=== PATIENT | female | born 1975 | race Asian ===

== ENCOUNTER 2022-08-05 18:30 | Outpatient (CLI) | payer BC, SELFPAY ==
[2022-08-05 15:21] LABS: Cholesterol* 199 mg/dL (90-199)
[2022-08-05 15:22] LABS: Glucose* 90 mg/dL (60-115); HDL Cholesterol* 46 mg/dL (>=50); LDL Cholesterol Calculated 130 mg/dL (<100); Triglycerides* 117 mg/dL (40-149)
[2022-08-05 17:21] LABS: Hepatitis B Surface Antibody* Indeterminant (Negative)
[2022-08-06 17:23] LABS: Hepatitis B Core Antibodies Negative (Negative)
[2022-08-07 09:07] LABS: Hepa B Virus Surf Ag Conf Non Confirmed (Non Confirmed)
== END 2022-08-05 18:31 | disposition home or self-care (01) ==
PROVIDERS: PCP Emergency Medicine; Visit Provider Emergency Medicine
DX: Z01.419 Encounter for gynecological examination (general) (routine) without abnormal findings (principal); Z13.6 Encounter for screening for cardiovascular disorders; Z13.1 Encounter for screening for diabetes mellitus; Z11.59 Encounter for screening for other viral diseases
CPT/HCPCS: 80061; 82947; 86704; 86706; 87341

== ENCOUNTER 2023-09-29 08:47 | Outpatient (CLI) | payer BC, SELFPAY | END 2023-09-29 08:48 | disposition home or self-care (01) | PROVIDERS: PCP Emergency Medicine; Visit Provider Emergency Medicine | DX: R11.0 Nausea (principal); Z13.220 Encounter for screening for lipoid disorders; Z01.84 Encounter for antibody response examination | CPT/HCPCS: 80048; 80061; 80076; 86140; 86706; 87086 ==

== ENCOUNTER 2023-11-10 15:30 | Outpatient (RCR) | payer BC, SELFPAY ==
--- NOTE | 2023-10-26 09:23 | PT.OPE ---
PT [facility] PT [facility] Eval Start: 10/24/23 15:22 Freq: Status: Active Protocol: Document 10/26/23 09:17 CJT (Rec: 10/26/23 09:23 CJT [id number]) E-signed By Cale Hewitt PT Physical Therapy Outpatient Evaluation Insurance Information Recert Due Date 01/23/24 Insurance Name [employer] Medical Diagnosis M25.512 - L shoulder pain Treating Diagnosis M25.512 - L shoulder pain Referring Irais Corral MD Subjective Subjective Pt presents with complaints of L shoulder pain ongoing for about 4 months. Pt points to just lateral of L acromion process as the source of her pain. Lifting the arm makes her pain worse. Shoulder ROM seems to be limited, Cannot elevate to her normal height and the shoulder feels stiff when reaching behind her back, both overhand and underhand. 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 Preferred Name Zara Cruz) Precautions Therapy Limitations/Systems Review Not Limited Objective Other/Pertinent Objective Cervical ROM Extension - 55 Flexion - 55 R/L Side Bend - 30/30 * stiffness to the R R/L Rotation - 75/75 R Shoulder ROM Flexion/Abduction/IR/ER - 180/ 180/T10/90 L Shoulder ROM Flexion/Abduction/IR/ER - 73/ 90/PSIS/50 R Shoulder Strength Flexion - 5/5 MMT Abduction - 5/5 MMT IR (neutral) - 5/5 MMT IR (90) - 5/5 MMT ER (neutral) - 5/5 MMT ER (90) - 5/5 MMT Empty Can - 5/5 MMT L Shoulder Strength Flexion - 5/5 MMT Abduction - 5/5 MMT IR (neutral) - 4/5 MMT ER (neutral) - 4/5 MMT Empty Can - 5/5 MMT Palpation: pt reports minimal tenderness with palpation around L shoulder thsi date Posture: fair, some slight forward rounding of B shoulders Spurling's Compression: negative [place]'s: negative Crossover: pain noted in L shoulder AC Compression: negative Zeng-Amrik: pt notes pain with sustained pressure in testing position Anette: negative Speeds: negative Assessment Assessment/Impression Zara is a very pleasant 48 year old female who presents to our clinic for evaluation and treatment of L shoulder pain. Pt demonstrates very clear signs of adhesive capsulitis with ROM in all planes of GHJ limited this date. Her strength is nearly full and she has very little pain with strength testing. Evaluating for signs of impingement was challenging due to pts lack of L shoulder ROM, however I do not suspect RTC involvement as being the primary cause of her issue as her strength was nearly full. She did demonstrate some weakness around the L shoulder but this may have been due to lack of understanding directions from myself or her chief recordist. Pt may benefit from referral to orthopedics with potential cortisone injection to L shoulder. I did explain to Zara that this pathology often takes a long time to fully heal and she should perform the stretches that I gave her 3 times daily to help reduce capsular tightness. The nature of the pts condition was explained and all questions were answered to the pts satisfaction. Skilled PT services are medically necessary to address deficits and return patient to highest level of function. Recommend physical therapy sessions 1/ week for 6-8 weeks. Pt agrees with this plan. Printout of HEP was given for I completion and pt gives verbal understanding of each exercise . Primary Functional Limitations Lifting, reaching Plan of Care Rehabilitation Potential Good Physical Therapy Goals STG - To be completed in 2-3 weeks: 1. Pt will demonstrate improved shoulder flexion and abduction by 10+ degrees so that they may reach for cans of soup on top shelf in pantry . 2. Pt will report reduction in shoulder pain by factor of 2 so that they may sleep without waking due to pain while shifting position in the night . LTG - To be completed in 6-8 weeks: 1. Pt to be I with HEP so that they may I manage progression of symptoms. 2. Pt will demo full and pain free shoulder ROM and strength so that they may return to recreational exercise with their friends. Treatment Plan/Direct Interventions Electrical Stimulation,Heat, Joint Mobilization,Manual Therapy,Self-Care/Home Management,Therapeutic Activities,Therapeutic Exercises,Ultrasound Frequency/Duration 1/week for 6-8 weeks Patient Will Be Discharged From Therapy Completion of LTG(s),Skills Plateau,Independent w/HEP, Independently Progressing Evaluation Billing Untimed Code Treatment Minutes 35 PT Eval No Charge No Complexity Low Certification Information Physician Comment/Change : Physician NPI Number #
== END 2023-12-27 15:24 | disposition home or self-care (01) ==
PROVIDERS: PCP Emergency Medicine; Visit Provider Emergency Medicine
DX: M25.512 Pain in left shoulder (principal); M25.819 Other specified joint disorders, unspecified shoulder; Z51.89 Encounter for other specified aftercare
CPT/HCPCS: 97110; 97140; 97161